=== PATIENT | male | born 2005 | race Caucasian/White ===

== ENCOUNTER 2024-06-28 21:07 | Emergency (ER) | payer BC, OTHER, SELFPAY ==
[2024-06-28 21:36] VITALS: BP 115/67
[2024-06-28 22:27] VITALS: BP 133/77
[2024-06-28] MEDS: DELTASONE 50 MG PO (22:34)
[2024-06-28] MEDS: DUONEB 3 ML INH (22:34)
[2024-06-28 22:37] VITALS: BMI 23.6
--- NOTE | 2024-06-28 22:51 | ED.GENMED ---
History of Present Illness
General
Chief Complaint: Breathing Problem
Source: patient
Time Seen by Provider: 06/28/24 22:23
History of Present Illness
History of Present Illness:
18-year-old male with past medical history of asthma presenting to the emergency department for evaluation after experiencing 2 days of URI-like symptoms, today developed worsening shortness of breath prompting him to come to the ER. Patient notes
that he was using his mother's inhaler with only some relief. Was unaware of any fevers at home, had a temperature here of 100 orally. Took a COVID test at home which was negative. No known sick contacts or recent travel/antibiotics. Notes
associated nasal congestion and mild sore throat but no other symptoms.
Past History
Past History
ED Past Medical History: Asthma
ED Past Surgical History: Other
Social History
Tobacco: Non-smoker
Alcohol: None
Drug: None
Personal: Single
Living: with family
Review of Systems
Review of Systems
All Other Systems: ROS reviewed and negative except as documented in HPI and ROS
Phy Exam
Physical Exam
Physical Exam:
GENERAL: Alert , in no apparent distress
EYE: conjunctiva clear
NECK: Supple
ENT: o/p clr, mmm.
CARDIAC: Regular rate and rhythm
LUNGS: faint end expiratory phase wheeze in the posterior lung jorgensen but no acute respiratory distress, no accessory muscle use or tachypnea, speaking full sentences
NEUROLOGICAL: Alert and oriented
SKIN: Warm and dry, skin intact.
MUSCULOSKELETAL: well perfused.
PSYCH: Normal and appropriate interaction.
Scores
Heart Failure Risk
Heart Failure Risk Score: Not Applicable
Heart Score for Chest Pain Patients
STEMI patient?: Not applicable
Withdrawal Assessment of Alcohol
Withdrawal Assessment Completed?: Not applicable
Course
Orders/Labs/Results
Orders:
Orders
06/28/24 22:27
Ipratropium/Albuterol Sulfate [Duoneb] 3 ml INH R NOW ONE
Prednisone [Deltasone] 50 mg PO NOW STA
CR Chest - 2 Views Urgent
Comment:
Reason For Exam: SOB, cough
06/28/24 23:29
Influenza A+B Rapid Molecular Urgent
ELDA Source: Nasal Swab
Specimen Description:
Vital Signs
Initial and Last Documented VS:
Initial Vital Signs
Temp Pulse Resp BP Pulse Ox
100 F 113 18 115/67 95
06/28/24 21:36 06/28/24 21:36 06/28/24 21:36 06/28/24 21:36 06/28/24 21:36
Last Documented Vital Signs
Temp Pulse Resp BP Pulse Ox
98.9 F 92 16 121/78 93
06/28/24 23:30 06/28/24 23:30 06/28/24 23:30 06/28/24 23:30 06/28/24 23:30
MDM/Problems Addressed
Differential Diagnosis Includes:
Viral syndrome, flu, pneumonia, asthma exacerbation
MDM/Problems Addressed:
18-year-old male presenting emergency department for evaluation of cough and shortness of breath with symptoms starting 2 days ago, worse today. Used mom's inhaler with minimal relief. Wheezing noted on exam. Will treat with DuoNeb and dose of
prednisone. Patient does not have an inhaler or nebulizer at home for personal use. Will provide with this. Short-term course of steroids likely. Will obtain chest x-ray to rule out pneumonia. Patient did a COVID test at home which was
negative. Will check for the flu. Anticipate discharge home.
Chronic conditions affecting care: Asthma
Acute Exacerbation and/or Progression of Chronic Illness: Asthma
*Radiology
Radiology exam reviewed: preliminary read by ED provider (Normal chest x-ray)
*Pulse Oximetry
Patient hypoxic: no
*Critical Care Note
Total Time (30-74mins, 75-104mins- exclusive of procedures): Not Applicable
Patient Management
Escalation/DeEscalation of care consider admission/obs:
On reevaluation patient's wheezing is fully resolved and he reports feeling significant improvement of symptoms. Prescription for short burst of prednisone ordered in addition to albuterol nebs and albuterol inhaler. Patient was given nebulizer
machine for home use. Aware of return precautions to the ER but otherwise stable for discharge home.
ED Attending Note
-
Portions of this chart may have been created with voice recognition software.� Occasional wrong word or��sound alike� substitutions may have occurred due to the inherent limitations of voice recognition software.
Discharge Plan
Departure
Patient Disposition: Home (Routine Discharge)
Date of Disposition: 06/29/24
Time of Disposition: 00:20
Patient with high blood pressure during this ER visit?: No
Discharge Problem:
Asthma exacerbation, Upper respiratory infection, viral
Instructions: Asthma, Adult (DC)
Prescriptions:
New
prednisone 50 mg tablet
50 mg PO DAILY 4 Days Qty: 4 0RF
albuterol sulfate 2.5 mg /3 mL (0.083 %) solution for nebulization
2.5 mg inhalation Q4H PRN (Reason: shortness of breath or wheezing) Qty: 180 0RF
albuterol sulfate 90 mcg/actuation HFA aerosol inhaler
2 puff inhalation Q6H PRN (Reason: shortness of breath or wheezing) Qty: 6.7 0RF
Referrals:
NONE,* [Family Provider] -
Interventions
Interventions:
*Risk Screen - Suicide Last Done: 06/28/24 22:51
*General Assessment Last Done: 06/28/24 23:30
*Neglect/Abuse Screening Last Done: 06/28/24 22:51
ED- Fall Risk Assessment Last Done: 06/28/24 22:37
*ED COVID-19 Vaccine History Last Done: 06/28/24 22:51
ED- Cardiac Assessment Last Done: 06/28/24 23:30
ED- Pulmonary Assessment Last Done: 06/28/24 23:30
Discharge Date and Time
Print Language: [id number]
[2024-06-28 23:00] VITALS: BP 121/78
[2024-06-28 23:30] VITALS: BP 121/78
== END 2024-06-29 00:28 | disposition home or self-care (01) ==
LOC: EMR 21:07
PROVIDERS: EMERGENCY PHYSICIAN Student in an Organized Health Care Education/Training Program
DX: J45.901 Unspecified asthma with (acute) exacerbation (principal); J06.9 Acute upper respiratory infection, unspecified; B97.89 Other viral agents as the cause of diseases classified elsewhere
CPT/HCPCS: 99284; 94640; 71046; 87502